=== PATIENT | male | born 1970 | race Caucasian/White ===

== ENCOUNTER 2023-03-12 07:41 | Outpatient (CLI) | payer OTHER, SELFPAY ==
--- OUTSIDE RECORDS SUMMARY | 2023-03-13 11:23 | XMS_ITS | Continuity of Care Document ---
Author Name Unknown Organization [facility] Address [address] [place] [address] Phone Care Team Providers Care Warehouse Handler Name Role Phone Shona Garvin MD Unavailable Unavailable Medications Medication Instructions Dosage Effective Dates (start - stop) Status Comments ibuprofen 800 mg Tab take 1 tablet (800M G) by oral route 3 times every day with food 800 MG - Active Procedures Procedure Date Office/Outpatient Visit,New, Mod 2019 X-Ray Exam Of Neck Spine, 4+ Views Office/outpatient visit,est, mod 2010 X-ray exam of neck spine2-3 views Postop followup visit X-ray exam of neck spine2-3 views Remove Cerv spine disk, single 10 Remove added Cerv spine disk Neck spine fusion (cerv,below C2) Spinal fusion, ea add'l interspace Apply spinal prosthetic device 10 Insert spine fix dev, ant, 2-3 seg PA Assist Remove Cerv spine disk, single PA Assist Remove added Cerv spine disk J PA Assist Cervical spine fusion (cerv,be low C2) PA Assist Spinal fusion, ea add'l inters pace PA Assist Apply spinal prosthetic device PA Assist Insert spine fix dev, ant, 2-3 seg Pre Op Office/outpatient visit, 010 X-ray exam of neck spine2-3 views Office consultation, moderate 0 Advance Directives Directive Yes / No Effective Date File Name No Information Encounters Encounter Description Practice Location Reason(s) For Visit Diagnoses Date Provider Providers Copied on Encounter [facility], [address], [place], [place], [id number], [place] tel:[phone] No Information 0 Virgie Nagel. [facility], [address], [place], [address], [place]. tel:[phone] Office/Outpa tient Visit,New, Mod [facility], [address], [place], [place], [id number], [place] tel:[phone] [facility] [place] Spinal stenosis, cervical region 0 Virgie Nagel. [facility], [address], [place], [place], [facility], [place]. tel:[phone] Referring Provider: [facility] [address] [place], [address]. tel:[phone] Z [facility], [address], [place], [address], [place] tel:[phone] [facility] No Information August-0 2 No Information Referring Provider: [facility] [address] [place], [address]. tel:[phone] Office/outpa tient visit,est, mod Z [facility], [address], [place], [address], [place] tel:[phone] [facility] No Information 1 No Information Referring Provider: [facility] [address] [place], [address]. tel:[phone] Z [facility], [address], [place], [address], [place] tel:[phone] [facility] No Information Dec- 0 No Information Referring Provider: Aydin [facility] [address] [place], [address]. tel:[phone] [facility] [place], [address] [place] [address] [address], [place], [address], [place] tel:[phone] [facility] No Information 0 No Information Referring Provider: [facility] [address] [place], [address]. tel:[phone] Pre Op Office/outpa tient visit, Z [facility] [place], [address] [facility] [address], [place], [address], [place] tel:[phone] [facility] [employer] No Information 0 No Information Referring Provider: [facility] [address] [place], [address]. tel:[phone] Office consultation , moderate Z [facility], [address] [place] [address], [place], [address], [place] tel:[phone] [facility] [employer] No Information Jul-0 0 No Information Referring Provider: [facility] [address] [place], [address]. tel:[phone] Family History Family Member Type Diagnosis Age At Onset No Information Payers Payer name Insurance type Covered democrat ID Tomas wright(s) [facility] [id number] Social History Type Description Quantity Date Captured Comments Sex Male Smoking Status No Information Chief Complaint And Reason For Visit No Information Reason For Referral Reason For Referral No Information Plan Of Treatment Date Type Action Status Future Order: Radiology Order AP Lateral Cervical (APlatcerv), Ordered on: Ordered Future Order: Radiology Order F/ E Cervical (F/Ecervical), Ordered on: Ordered History Of Present Illness Encounter Date Complaint History Of Prese nt Illness No Information Functional Status Date Functional Assessmen t No Information Instructions Date Instruction Additional Infor mation No Information Assessments Type Assessment Date No Information Patient Care Teams Name Effective Dates (start - stop) Status Members No Information
== END 2023-03-12 07:42 | disposition home or self-care (01) ==
LOC: NFLDREF 03-13 11:21
PROVIDERS: PCP Internal Medicine; Referring Provider Internal Medicine; Visit Provider Internal Medicine
DX: Z13.228 Encounter for screening for other metabolic disorders (principal); Z13.220 Encounter for screening for lipoid disorders; Z12.5 Encounter for screening for malignant neoplasm of prostate
CPT/HCPCS: 80053; 80061; 84153

== ENCOUNTER 2023-07-23 14:30 | Outpatient (CLI) | payer OTHER, SELFPAY ==
--- OUTSIDE RECORDS SUMMARY | 2023-07-26 06:49 | XMS_ITS | Continuity of Care Document ---
Author Name [facility] Organization [facility] Care Team Providers Care Conveyor Belt Repairer Name Role Phone [facility] Unavailable Unavailable Problems Combined list of problems from Department of Defense and Veterans Affairs facilities. It does not include entries that were removed or entered in error. Problem Status Onset Date Problem Type Date of Resolution Comments Source visit for: ears / hearing exam Active Condition DoD visit for: services physical Active Condition [facility] cervical radiculopathy C8 (C7-T1) Inactive Condition [facility] shoulder sprain Inactive Condition [facility] neck strain Inactive Condition [facility] shoulder strain left Inactive Condition [facility] trapezius muscle strain left Inactive Condition DoD Immunizations Combined list of available immunizations from the Department of Defense and Veterans Affairs facilities. Immunization Series Date Given Administered By Site Reaction Lot Number CVX Code Drug Talent Acquisition Program Manager Status Comments Source COVID-19 ([employer]), MRNA, LNP-S, PF, 30 MCG/0.3 ML DOSE 2 2020 208 complet ed PFR; [id number]; 1 [facility] COVID-19 (PFIZER), MRNA, LNP-S, PF, 30 MCG/0.3 ML DOSE 1 2020 208 complet ed PFR; [id number]; 1 [facility] anthrax vaccine 6 2008 [id number] Unknown (UNK) comple t ed anthrax vaccine DoD Novel influenza-H1N 1-09, injectable 1 2008 [id number] 127 Unknown (UNK) complet ed Novel influenza -[id number], injectabl e DoD influenza virus vaccine, split virus (incl. purified surface antigen)-reti red CODE 1 2008 [id number] Sanofi Pasteur ([facility]) complet ed influenza virus vaccine, split virus (incl. purified surface antigen)- retired CODE DoD varicella virus vaccine 1 2008 UNK 21 Unknown (UNK) Not Given varicella virus vaccine [facility] typhoid Vi capsular polysaccharid e vaccine 1 2008 [id number] Sanofi Pasteur ([facility]) complet ed typhoid Vi capsular polysacch aride vaccine DoD anthrax vaccine 5 2008 UNK 24 [place] (MIL) complet ed anthrax vaccine DoD influenza virus vaccine, split virus (incl. purified surface antigen)-reti red CODE 1 2007 UNK 15 Unknown (UNK) comple t ed influenza virus vaccine, split virus (incl. purified surface antigen)- retired CODE DoD influenza virus vaccine, split virus (incl. purified surface antigen)-reti red CODE 1 2006 UNK 15 [facility] ([facility]) complet ed influenza virus vaccine, split virus (incl. purified surface antigen)- retired CODE DoD influenza virus vaccine, split virus (incl. purified surface antigen)-reti red CODE 1 2006 UNK 15 Unknown (UNK) comple t ed influenza virus vaccine, split virus (incl. purified surface antigen)- retired CODE DoD hepatitis A and hepatitis B vaccine 3 2004 UNK 104 Unknown (UNK) comple t ed hepatitis A and hepatitis B vaccine DoD influenza virus vaccine, split virus (incl. purified surface antigen)-reti red CODE 1 2004 [id number] 15 Unknown (UNK) comple t ed influenza virus vaccine, split virus (incl. purified surface antigen)- retired CODE DoD hepatitis A and hepatitis B vaccine 2 2003 UNK 104 Unknown (UNK) comple t ed hepatitis A and hepatitis B vaccine DoD anthrax vaccine 4 2002 UNK 24 Unknown (UNK) comple t ed anthrax vaccine DoD anthrax vaccine 3 2002 UNK 24 Unknown (UNK) comple t ed anthrax vaccine DoD vaccinia (smallpox) vaccine 0 2002 UNK 75 Unknown (UNK) comple t ed vaccinia (smallpox ) vaccine DoD poliovirus vaccine, inactivated 0 2002 UNK 10 Unknown (UNK) comple t ed polioviru s vaccine, inactivat ed DoD anthrax vaccine 2 2002 [id number] [employer] ([facility]) complet ed anthrax vaccine DoD typhoid Vi capsular polysaccharid e vaccine 1 2002 UNK 101 Unknown (UNK) comple t ed typhoid Vi capsular polysacch aride vaccine DoD anthrax vaccine 1 2002 [id number] Unknown (UNK) comple t ed anthrax vaccine DoD measles, mumps and rubella virus vaccine 0 2002 UNK 03 Unknown (UNK) comple t ed measles, mumps and rubella virus vaccine DoD yellow fever vaccine 0 2002 UNK 37 Unknown (UNK) comple t ed yellow fever vaccine DoD hepatitis A and hepatitis B vaccine 1 2002 UNK 104 Unknown (UNK) comple t ed hepatitis A and hepatitis B vaccine DoD tetanus and diphtheria toxoids, adsorbed, preservative free, for adult use (2 Lf of tetanus toxoid and 2 Lf of diphtheria toxoid) 0 2000 UNK 09 Unknown (UNK) comple t ed tetanus and diphtheri a toxoids, adsorbed, preservat darrell free, for adult use (2 Lf of tetanus toxoid and 2 Lf of diphtheri a toxoid) DoD typhoid vaccine, unspecified formulation 0 1991 UNK 91 Unknown (UNK) comple t ed typhoid vaccine, unspecifi ed formulati on DoD trivalent poliovirus vaccine, live, oral 0 1990 UNK 02 Unknown (UNK) comple t ed trivalent polioviru s vaccine, live, oral DoD yellow fever vaccine 0 1990 UNK 37 Unknown (UNK) comple t ed yellow fever vaccine DoD influenza virus vaccine, unspecified formulation 0 1990 UNK 88 Unknown (UNK) comple t ed influenza virus vaccine, unspecifi ed formulati on DoD rubella virus vaccine 0 1986 UNK 06 Unknown (UNK) comple t ed rubella virus vaccine DoD vaccinia (smallpox) vaccine 0 1986 UNK 75 Unknown (UNK) comple t ed vaccinia (smallpox ) vaccine DoD poliovirus vaccine, unspecified formulation 0 1986 UNK 89 Unknown (UNK) comple t ed polioviru s vaccine, unspecifi ed formulati on DoD meningococcal polysaccharid e vaccine (MPSV4) 0 1986 UNK 32 Unknown (UNK) comple t ed meningoco ccal polysacch aride vaccine (MPSV4) DoD adenovirus vaccine, type 4, live, oral 0 1986 UNK 54 Unknown (UNK) comple t ed adenoviru s vaccine, type 4, live, oral DoD adenovirus vaccine, type 7, live, oral 0 1986 UNK 55 Unknown (UNK) comple t ed adenoviru s vaccine, type 7, live, oral DoD Encounters Combined list of: 1) Encounters from Department of Veterans Affairs facilities going back up to thelast 18 months. 2) Encounters from the Department of Defense facilities going back up to 280 months. Location Location Details Encounter Type Encounter Number Reason For Visit Attending Provider ADM Date DC Date Status Disposition Source Theater Facility OUTPATIENT [id number] 01/12 Released w/o Limitations [facility] OUTPATIENT [id number] 01/14 Released with Work/Duty Limitations [facility] OUTPATIENT [id number] 01/24 Released w/o Limitations [facility] OUTPATIENT [id number] 02/14 Released w/o Limitations [facility] OUTPATIENT [id number] 02/21 Released w/o Limitations [facility] OUTPATIENT [id number] CM EMERSON 04/26 Released w/o Limitations [facility] lindy Tenorio( [facility] ) Procedures Combined list of: 1) Procedures from Department of Veterans Affairs facilities going back up to thelast 18 months, not all VA non-surgical procedures are included; 2) All procedures from the Department of Defense facilities. Procedure Procedure Type Code Date Perfomer Comments Sour e Physician Supervised Group Educational Services 04/29/2009 CM EMERSON [facility] ENT Services ENT Services [id number] 04/29/2009 VANNESA EMERSON Audiometry Group Testing Audiometry Group Testing [id number] 04/29/2009 CM EMERSON Special Physician Services Analysis Of Computerized Data Special Physician Services Analysis Of Computerized Data [id number] 04/29/2009 CM EMERSON Threshold Audiogram (Pure Tone) Threshold Audiogram (Pure Tone) [id number] 04/29/2009 CM EMERSON PHYS/OTH QUALIFIED HEALTH STAFFING BRANCH MANAGER QUALIFIED,EDUCATION ,TRAIN,LICENSURE/RE GULATION (WHEN APPLICABLE) EDUC SER RENDERED TO PATS IN A GRP SETTING (EG,,OBESIT Y,OR DIABETIC INSTRUCT) 2009 [facility] COLLECTION OF VENOUS BLOOD BY VENIPUNCTURE 04/24/2009 [facility] ANALYSIS OF CLINICAL DATA STORED IN COMPUTERS (EG, ECGS, BLOOD PRESSURES, HEMATOLOGIC DATA) 06/27/2008 [facility] COLLECTION OF VENOUS BLOOD BY VENIPUNCTURE 05/18/2008 [facility] BINOCULAR MICROSCOPY (SEPARATE DIAGNOSTIC PROCEDURE) 08/29/2002 [facility] BINOCULAR MICROSCOPY (SEPARATE DIAGNOSTIC PROCEDURE) 08/17/2002 [facility] SPEECH AUDIOMETRY THRESHOLD; 08/16/2002 [facility] PURE TONE AUDIOMETRY (THRESHOLD); AIR ONLY 07/05/2002 DoD Social History Combined list of available smoking, tobacco, and other social history from Department of Defense and Veterans Affairs facilities. Social History Type Response Date Comment Sour e This section is an empty social history section. DoD
--- OUTSIDE RECORDS SUMMARY | 2023-07-26 06:49 | XMS_ITS | Continuity of Care Document ---
Author Name Unknown Organization [facility] Address [address] [place] [address] Phone Care Team Providers Care Tack Picker Name Role Phone Shona Garvin MD Unavailable [...] Copied on Encounter [facility], [address], [place], [place], [id number], [place] tel:[phone] No Information 0 Virgie Nagel. [facility], [address], [place], [address], [place]. tel:[phone] Office/Outpa tient Visit,New, Mod [facility], [address], [place], [place], [address], [place] tel:[phone] [facility] [place] Spinal stenosis, cervical region 0 Virgie Nagel. [facility], [address], [place], [place], [facility], [place]. tel:[phone] Referring Provider: [facility] [address] [place], [address]. tel:[phone] Z [facility], [address], [place], [address], [place] tel:[phone] [facility] No Information August-0 2 No Information Referring Provider: [facility] [address] [place], [address]. tel:[phone] Office/outpa tient visit,est, mod Z [facility], [address], [place], [address], [place] tel:[phone] [facility] No Information 1 No Information Referring Provider: [facility] [address] [place], [address]. tel:[phone] Z [facility], [address], [place], [address], [place] tel:[phone] [facility] No Information Dec- 0 No Information Referring Provider: Aydin [facility] [address] [place], [address]. tel:[phone] [facility] [place], [address] [place] [address] [address], [place], [address], [place] tel:[phone] [facility] No Information 0 No Information Referring Provider: [facility] [address] [place], [address]. tel:[phone] Pre Op Office/outpa tient visit, Z [facility], [address] [facility] [address], [place], [address], [place] tel:[phone] [facility] [employer] No Information 0 No Information Referring Provider: [facility] [address] [place], [address]. tel:[phone] Office consultation , moderate Z [facility], [address] [place] [address], [place], [address], [place] tel:[phone] [employer] [facility] [employer] No Information Jul-0 0 No Information Referring Provider: [facility] [address] [place], [address]. tel:[phone] Family History Family Member Type Diagnosis Age At Onset No Information Payers Payer name Insurance type Covered democrat ID Tomas wright(s) [facility] [id number] Social History Type Description Quantity Date Captured [...]
--- OUTSIDE RECORDS SUMMARY | 2023-07-26 06:49 | XMS_ITS | Clinical Summary ---
Author Name Unknown Organization [facility] Address [place], [place] [address] Care Team Providers Care Director Veterinary Name Role Phone Clinic, No Pcp Or Primary Care Provider Unavaila ble Allergies No known active allergies Medications Medication Sig Dispensed Refills Start Date End Date Status menthol-cetylpyridin ium (CEPACOL) 2 mg lozenge Take 1 Lozenge by mouth every 2 hours if needed for Sore Throat. 30 Lozenge 0 09/21/2009 Active sennosides-docusate, 8.6-50 mg, (SENOKOT S) 8.6-50 mg tablet Take 1-4 tablets by mouth 2 times daily. 30 tablet 0 09/21/2009 Active oxycodone-acetaminop hen, 5-325 mg, (PERCOCET 5-325) 5-325 mg per tablet Take 1-2 tablets by mouth every 4 hours if needed for Pain and Other (Specify). moderate pain 80 tablet 0 09/21/2009 Active omeprazole (PRILOSEC) 20 mg Delayed-Release capsuleIndications:A bdominal pain, unspecified abdominal location Take 1 Capsule (20 mg) by mouth once daily before a meal. 30 Capsule 03/10/2023 Active Social History Tobacco Use Types Packs/Day Years Used Date Smoking Tobacco: Never Smokeless Tobacco: Never Sex and Gender Information Value Date Recorded Sex Assigned at Not on file Gender Identity Not on file Sexual Orientation Not on file Obstetrics History Last Filed Vital Signs Vital Sign Reading Time Taken Comments Blood Pressure 132/95 03/10/2023 2:36 PM PACKAGING CLERK Pulse 63 03/10/2023 2:35 PM PACKAGING CLERK Temperature 36.5 ??C (97.7 ??F) 03/10/2023 2:35 PM CS T Respiratory Rate 16 03/10/2023 2:35 PM PACKAGING CLERK Oxygen Saturation 99% 03/10/2023 2:35 PM PACKAGING CLERK Inhaled Oxygen Concentration - - Weight 90.3 kg (199 lb) 03/10/2023 2:35 PM PACKAGING CLERK Height 175.3 cm (5' 9) 03/10/2023 2:35 PM PACKAGING CLERK Body Mass Index 29.39 03/10/2023 2:35 PM PACKAGING CLERK Plan of Treatment Health Maintenance Due Date Last Done Comments Tdap 1980 Depression screening for age 12+ 1981 HIV for age 15-65 1984 BMI (ht and wt on same day) for age 18+ 1987 Hepatitis C screening for ag e 18-79 1987 Tetanus booster 1989 Colonoscopy through age 75 2014 Lipids for age 45-75 2014 Zoster (shingles) series for age 50+ (1 of 2) 2019 COVID-19 vaccine series ( - 2022- season) 2022 Influenza for age 50-64 12/05/2023 Pneumococcal series for age 6-64 Aged Out No longer eligible based on patient's age to complete this topic Medical Devices Implanted Type Area Dog License Officer Supervisor Device Identifier Shelf Expiration Date Model / Serial / Lot Screw Canclls 4.0x15mm [id number] - [id number] Implanted:Qty: 2 on 09/20/2009 at [facility] Spine Implants N/A: Spine [employer] [id number]# / / Screw 3.5x15 Zephir Self Tap - [id number] Implanted:Qty: 3 on 09/20/2009 at [facility] Spine Implants N/A: Spine [employer] [id number]# / / [id number] utty Progenix Dbm 1cc [[id number]] Implanted:Qty: 1 on 09/20/2009 at [facility] Explanted:at [facility] (Quantity not on file) Spine Medtronic 06/01/2011 [id number]# / [id number] / Plate 42.5mm Zephir - [id number] Implanted:Qty: 1 on 09/20/2009 at [facility] N/A: Spine [employer] [id number]# / / Sendy Psr [id number] - [id number] Implanted:Qty: 2 on 09/20/2009 at [facility] N/A: Spine [employer] 07/01/2017 [id number]# / / [id number] Advance Directives * Full Code (Latest Code Status on File) Date Activated Date Inactivated Comments 09/20/2009 9:42 AM 09/21/2009 8:56 PM * Full Code Date Activated Date Inactivated Comments 11/22/2004 7:45 AM 11/23/2004 2:05 AM Care Teams Director Veterinary Relationship Specialty Start Date End Date Clinic, No Pcp Or . PCP - General 03/10/23
== END 2023-07-23 14:31 | disposition home or self-care (01) ==
LOC: NFLDREF 07-26 06:45
PROVIDERS: PCP Internal Medicine; Referring Provider Internal Medicine; Visit Provider Internal Medicine
DX: N40.0 Benign prostatic hyperplasia without lower urinary tract symptoms (principal); Z12.5 Encounter for screening for malignant neoplasm of prostate
CPT/HCPCS: G0103